=== PATIENT | female | born 1995 | race Caucasian/White ===

== ENCOUNTER → 2022-04-29 | Outpatient (CLI) | payer OTHER ==
[2022-04-29 17:29] LABS: COMPLEMENT C3 106 MG/DL (90-180); COMPLEMENT C4 24 MG/DL (10-40); RHEUMATOID FACTOR QUANT < 10.0 IU/ML (<15.0); THYROXINE (T4) 8.7 UG/DL (4.5-12.0)
[2022-04-29 18:25] LABS: THYROID PEROXIDASE ANTIBODY 37.8 U/ML (<60.0); TOTAL T3 132.3 NG/DL (60.0-181.0)
== END ==
LOC: M WUC 14:57
PROVIDERS: ATTEND Allergy & Immunology Allergy
DX: T78.3XXA Angioneurotic edema, initial encounter (principal)